=== PATIENT | female | born 2000 | race African-American/Black ===

== ENCOUNTER 2024-08-19 19:20 | Emergency (ER) | payer OTHER ==
[~2024-08-19] VITALS: Ht 175.3 cm; Wt 79.4 kg
[2024-08-19] MEDS ORDERED: CEFTRIAXONE SODIUM 1,000 MG VIAL IM ONE (20:30)
[2024-08-19] MEDS ORDERED: LIDOCAINE HCL 1% 10ML VIAL PERCUT ONE (20:30)
[2024-08-19] MEDS ORDERED: CEFTRIAXONE SODIUM 1,000 MG VIAL ONE (20:38)
[2024-08-19] MEDS ORDERED: KETOROLAC TROMETHAMINE 60 MG VIAL IM ONE ×2 (20:45→21:00)
[2024-08-19] MEDS ORDERED: DIPHTH,PERTUSS(ACELL),TET VAC 0.5 ML SYRINGE IM ONE (20:48)
[2024-08-19] MEDS ORDERED: DIPHTH,PERTUSS(ACELL),TET VAC 0.5 ML VIAL IM ONE (21:00)
[2024-08-19] MEDS ORDERED: DUI500 PO (21:13)
[2024-08-19] MEDS ORDERED: KETO10TA2 PO (21:13)
== END 2024-08-19 22:09 | disposition home or self-care (01) ==
LOC: ER 19:20
DX: S01.82XA Laceration with foreign body of other part of head, initial encounter (principal); W18.39XA Other fall on same level, initial encounter; Y93.89 Activity, other specified; Y92.89 Other specified places as the place of occurrence of the external cause; S80.211A Abrasion, right knee, initial encounter; Z88.8 Allergy status to other drugs, medicaments and biological substances